=== PATIENT | male | born 1985 | race Native Hawaiian/Other Pacific Islander ===

== ENCOUNTER 2017-07-16 13:35 | Emergency (ER) | payer OTHER ==
[~2017-07-16] VITALS: Ht 162.6 cm; Wt 104.3 kg
[2017-07-16 13:38] VITALS: BP 123/93; TEMP 98
== END 2017-07-16 14:25 | disposition home or self-care (01) ==
LOC: ED 13:35
DX: R09.81 Nasal congestion (principal)
CPT/HCPCS: 99281

== ENCOUNTER 2018-07-22 11:17 | Outpatient (CLI) | payer OTHER | END 2018-07-22 23:26 | disposition home or self-care (01) | LOC: LABW 11:17 | DX: Z79.899 Other long term (current) drug therapy (principal) | CPT/HCPCS: 36415; 80156 ==

== ENCOUNTER 2021-06-28 20:24 | Outpatient (CLI) | payer OTHER | END 2021-06-28 23:00 | disposition home or self-care (01) | LOC: LAB 20:24 | PROVIDERS: ATTEND Internal Medicine | DX: E72.20 Disorder of urea cycle metabolism, unspecified (principal) | CPT/HCPCS: 36415; 82140 ==

== ENCOUNTER 2021-07-14 10:10 | Outpatient (CLI) | payer OTHER | END 2021-07-14 19:18 | disposition home or self-care (01) | LOC: LABW 10:10 | PROVIDERS: ATTEND Psychiatry & Neurology Neurology | DX: Z79.899 Other long term (current) drug therapy (principal) | CPT/HCPCS: 36415; 80156; 82542 ==

== ENCOUNTER 2021-10-11 11:04 | Outpatient (CLI) | payer OTHER ==
[2021-10-11 20:12] LABS: POTASSIUM 4.2 mmol/L (3.6-5.2)
== END 2021-10-11 20:21 | disposition home or self-care (01) ==
LOC: LAB 11:04
PROVIDERS: ATTEND Internal Medicine
DX: Z79.899 Other long term (current) drug therapy (principal)
CPT/HCPCS: 36415; 80053; 82542

== ENCOUNTER 2022-01-11 10:23 | Outpatient (CLI) | payer OTHER ==
[2022-01-11 10:38] LABS: PLATELET COUNT 238 K/uL (142-355)
[2022-01-11 10:49] LABS: POTASSIUM 4.3 mmol/L (3.6-5.2)
== END 2022-01-11 20:40 | disposition home or self-care (01) ==
LOC: LABW 10:23
PROVIDERS: ATTEND Internal Medicine
DX: F84.0 Autistic disorder (principal); Z79.899 Other long term (current) drug therapy
CPT/HCPCS: 36415; 80053; 80061; 82542; 83036; 85027

== ENCOUNTER 2022-02-01 10:00 | Outpatient (CLI) | payer OTHER | END 2022-02-01 19:08 | disposition home or self-care (01) | LOC: LAB 10:00 | PROVIDERS: ATTEND Internal Medicine | DX: E56.9 Vitamin deficiency, unspecified (principal); E78.9 Disorder of lipoprotein metabolism, unspecified; F84.0 Autistic disorder; I10 Essential (primary) hypertension; E78.49 Other hyperlipidemia; G40.509 Epileptic seizures related to external causes, not intractable, without status epilepticus; R45.1 Restlessness and agitation; G44.86 Cervicogenic headache | CPT/HCPCS: 36415; 80156; 82140 ==

== ENCOUNTER 2022-02-12 10:04 | Outpatient (CLI) | payer OTHER | END 2022-02-12 19:52 | disposition home or self-care (01) | LOC: LAB 10:04 | PROVIDERS: ATTEND Psychiatry & Neurology Neurology | DX: G40.319 Generalized idiopathic epilepsy and epileptic syndromes, intractable, without status epilepticus (principal) | CPT/HCPCS: 36415; 80156; 82542 ==

== ENCOUNTER 2022-08-29 09:17 | Outpatient (CLI) | payer OTHER ==
[2022-08-29 14:16] LABS: PLATELET COUNT 222 K/uL (142-355)
[2022-08-29 14:37] LABS: POTASSIUM 4.3 mmol/L (3.6-5.2)
== END 2022-08-29 20:40 | disposition home or self-care (01) ==
LOC: LABW 09:17
PROVIDERS: ATTEND Internal Medicine
DX: R53.83 Other fatigue (principal); I10 Essential (primary) hypertension; E78.49 Other hyperlipidemia; G40.209 Localization-related (focal) (partial) symptomatic epilepsy and epileptic syndromes with complex partial seizures, not intractable, without status epilepticus; R41.83 Borderline intellectual functioning; F84.0 Autistic disorder
CPT/HCPCS: 36415; 80053; 82140; 82542; 82607; 82728; 82746; 83540; 84466; 85027; 85652

== ENCOUNTER 2022-10-15 13:16 | Outpatient (CLI) | payer OTHER | END 2022-10-15 18:58 | disposition home or self-care (01) | LOC: LABW 13:16 | PROVIDERS: ATTEND Psychiatry & Neurology Neurology | DX: G40.319 Generalized idiopathic epilepsy and epileptic syndromes, intractable, without status epilepticus (principal) | CPT/HCPCS: 36415; 82542 ==